=== PATIENT | male | born 1935 | race Caucasian/White ===

== ENCOUNTER 2016-11-15 20:43 | Emergency (ER) | payer MEDICARE, BC ==
[~2016-11-15] VITALS: Ht 203.2 cm; Wt 70.5 kg
[~2016-11-15 20:43] MED LIST: AFLEXA340 MG PO; ENALAPRIL5 MG PO; FISH OIL1000 MG PO; TRIAMTERENE/HCT1 TAB PO
[2016-11-15] MEDS ORDERED: SINEMET 25/101 UDTAB PO (21:43)
[2016-11-15 22:10] VITALS: TEMP 98.6
[2016-11-15] MEDS ORDERED: MAGIC MOUTH PO (22:39)
[2016-11-15 22:53] VITALS: BP 105/77; PULSE 64
== END 2016-11-15 22:59 | disposition home or self-care (01) ==
LOC: COL.ER 20:43
DX: R21 Rash and other nonspecific skin eruption (principal); I10 Essential (primary) hypertension; G20 Parkinson's disease

== ENCOUNTER → 2016-11-17 | Outpatient (REF) ==
[~2016-11-17] MED LIST changes: +MAGIC MOUTH PO; +SINEMET 25/101 UDTAB PO
== END ==
LOC: ZLAB.WCH 09:22
DX: Z02.89 Encounter for other administrative examinations (principal)

== ENCOUNTER → 2016-12-27 | Outpatient (REF) | LOC: ZLAB.WCH 11:39 | DX: Z01.89 Encounter for other specified special examinations (principal) | CPT/HCPCS: G0103 ==

== ENCOUNTER → 2017-08-23 | Outpatient (REF) ==
[2017-08-23 15:24] LABS: PSA-TOTAL 4.87 ng/mL (0-4)
[2017-08-23 15:25] LABS: THYROID STIMULATING HORMONE 3.31 uIU/mL (0.465-4.680)
== END ==
LOC: ZLAB.WCH 14:23
PROVIDERS: Internal Medicine
DX: Z01.89 Encounter for other specified special examinations (principal)
CPT/HCPCS: G0103

== ENCOUNTER → 2018-02-14 | Outpatient (REF) | LOC: ZLAB.WCH 16:37 | DX: Z01.89 Encounter for other specified special examinations (principal) | CPT/HCPCS: G0103 ==

== ENCOUNTER → 2018-04-27 | Outpatient (REF) | LOC: ZLAB.WCH 19:25 | DX: Z01.89 Encounter for other specified special examinations (principal) ==